=== PATIENT | male | born 1955 | race Caucasian/White ===

== ENCOUNTER → 2017-01-13 | Day surgery (SDC) | payer OTHER ==
[~2017-01-13] MED LIST: ACIPHEX20 MG PO; ADVIL200 M2 PO; DEPO-TESTOTERO100 MG IM; EXCEDRIN ASA FR1 TA1 PO; FENOFIBRATE160 MG PO; FLEXERIL PO; FLOMAX0.4 MG PO; GABAPENTIN600 MG PO; IBUPROFEN PO; LEVOTHYROXINE88 MCG PO; LIPITOR PO; MOBIC PO; MUSCLE RELAXER; OMEPRAZOLE20 M1 PO; PAIN MEDICATION; SYNTHROID0.1 MG PO; ZOLOFT PO
--- NOTE | ~2017-01-13 | OR ---
Unit #: [id number] #: [id number] Patient: GAYATHRI MAHAN SR [id number] [address] [place], [place] [address] [id number] MR#: [id number] NAME: GAYATHRI MAHAN SR ROOM: Date of Procedure: 01/13/2017 Admission Date: 01/13/2017 Surgeon: Vu Marie M.D. : 1955 Attending Physician: Vu Marie M.D. Primary Care Physician: Guerita Fonseca M.D. OPERATIVE REPORT SERVICES PROVIDED 1. Therapeutic cervical epidural steroid injection. 2. Fluoroscopy of the cervical spine. 3. IV sedation to facilitate the above. PREOPERATIVE DIAGNOSES 1. Degenerative disk disease, C3-C4, C4-C5, C5-C6, C6-C7 with neural foraminal stenosis. 2. Lumbar degenerative disk disease. 3. Other medical history. POSTOPERATIVE DIAGNOSES 1. Degenerative disk disease, C3-C4, C4-C5, C5-C6, C6-C7 with neural foraminal stenosis. 2. Lumbar degenerative disk disease. 3. Other medical history. PROCEDURE PERFORMED Cervical epidural steroid injection using fluoroscopy. FOLLOW-UP/REVIEW OF SYSTEMS/PHYSICAL EXAM Mr. Herrera is here for cervical epidural steroid injection to address the cervical radiculopathy. He also complains of a lumbar radiculopathy and was recommended a Medrol Dosepak for this particular problem, since he has responded to these in the past. He uses a Medrol Dosepak around once a year or so. He denies side effects with medication management. He has no medical contraindications to cervical epidural steroid injection that was performed as follows with his consent. INDICATIONS/COMMENTS AND CONSENTS/STATEMENT OF MEDICAL NECESSITY The patient's current medications, allergies and vital signs are documented in the nursing assessment. The risks and benefits of the intervention(s) were discussed with the patient in detail including but not limited to infection, bleeding, meningitis, steroid induced side-effects, nerve damage, paralysis, spinal headaches, neuritis, persistent or worsening pain. The patient wishes to proceed. A separate pain assessment is also in the chart. I have reviewed all of this and have reviewed this with the patient. A current History and Physical is also attached. DESCRIPTION OF PROCEDURE(S) 1. Monitoring and positioning: After appropriate discussions it was Unit #: [id number] #: [id number] Patient: GAYATHRI MAHAN SR decided to perform the procedure under local anesthesia with supplemental intravenous sedation. Vital signs were monitored in pre, intra and post-procedure phase. Monitoring included EKG, non-invasive BP, pulse oximetry, and temperature. These are documented and were stable. Appropriate supports and restraints were used. 2. Sedation: A total of 2 mg of Versed, 50 mcg of fentanyl, and Zofran 4 mg was administered intravenously. 3. Cervical epidural injection/fluoroscopy: The patient was placed in the sitting position. Positional supports were used. Fluoroscopy of the cervical spine was performed. Sterile prep and drape with carried out with ChloraPrep. Local anesthesia was with infiltrated with 3 mL of preservative-free 1% Lidocaine. Once anesthesia was established, a 22-gauge Tuohy epidural needle was inserted at the C7-T1 level epidurally, using an interlaminar approach, loss of resistance to saline technique, and with fluoroscopic guidance. Needle placement tested negative for subarachnoid and intravascular placement. An intra-operative epidurogram was now performed. Intra-operative epidurogram: 1 mL(s) of Isovue-M300 was injected through the epidural needle under continuous fluoroscopy. The dye was seen to spread to C6 in the cephalad direction, and to T1 in the caudal direction. The spread of the dye was uniform. 1 mL of preservative-free normal saline was used to irrigate the dye off the epidural space. There was no intravascular or intrathecal spread of contrast. A cervical epidural steroid injection was now performed using total of 3 mL of solution containing 0.7% lidocaine and 80 mg of Depo-Medrol. Fluoroscopic imaging confirmed spread of medication. The needle was then removed intact. The skin was washed off. Prep solution and dressings were applied at the injection site. The patient tolerated the procedure well. The patient was then observed in the recovery area for 30 minutes. RESULTS The patient had a consistent block with the dose of local anesthetic used. Pain relief was satisfactory. There were no complications or side effects. DISCHARGE CONDITION 1. Patient was discharged in satisfactory condition accompanied by a family member. 2. Post-procedure instructions were given. PLAN(S) Patient was advised to return to the clinic in 2 months for re-assessment and office visit. I thank the patient's referring physician for the opportunity to participate in the care of this patient. Please do not hesitate to call for any questions regarding this patient's pain management. Dictated by... Marilu Abraham/ryann TD: 01/13/2017 19:10 JOB #: [id number] Unit #: [id number] #: [id number] Patient: GAYATHRI MAHAN SR OPERATIVE REPORT X Vu Marie MD X PROCEDURE OPERATIVE NOTE
== END | disposition home or self-care (01) ==
LOC: CCSC 07:09
DX: M50.11 Cervical disc disorder with radiculopathy, high cervical region (principal); M50.121 Cervical disc disorder at C4-C5 level with radiculopathy; M50.122 Cervical disc disorder at C5-C6 level with radiculopathy; M50.123 Cervical disc disorder at C6-C7 level with radiculopathy; M48.02 Spinal stenosis, cervical region; M51.16 Intervertebral disc disorders with radiculopathy, lumbar region; K21.9 Gastro-esophageal reflux disease without esophagitis; E03.9 Hypothyroidism, unspecified; F17.210 Nicotine dependence, cigarettes, uncomplicated
CPT/HCPCS: J1040; J2250; J2405; J3010